=== PATIENT | male | born 1990 | race Caucasian/White ===

== ENCOUNTER 2018-05-10 17:10 | Emergency (ER) | payer OTHER ==
--- NOTE | 2018-05-10 17:29 | ER Report ---
History and Physical Time Seen By MD: 17:20 Hx. of Stated Complaint: L SHOULDER HAS BEEN HURTING SINCE JAN, FELT IT POP DURING SLEEP, PAIN RADIATING INTO JAW, HEAD AND L LEG, TINGLING L ARM HPI/ROS CHIEF COMPLAINT: Left shoulder pain HISTORY OF PRESENT ILLNESS: 27-year-old male patient presents to emergency room with complaint of left shoulder pain. Patient states he's been having problems with the shoulder since December. He states that today he was pushing himself up out of a chair when he felt a pop in his shoulder. He states since then he's been having pain to the left shoulder. He states the pain seems to radiate down the arm, up the neck as well as down the left side and into his leg. Patient states he did have significant knee pain when it ran down into his leg. He states that seemed to resolve after a few minutes. He states he called his father, who is a physician elementary assistant principal working in [employer] and he believed that it was likely a pinched nerve. He called in a prescription for a Medrol Dosepak. Patient states that he felt like the pain has worsened since then and wanted to come get that evaluated. REVIEW OF SYSTEMS: Respiratory: No cough, no dyspnea. Cardiovascular: No chest pain, no palpitations. Gastrointestinal: No vomiting, no abdominal pain. Musculoskeletal: As noted above Allergies: Coded Allergies: No Known Drug Allergies (Unverified , 05/10/18) Home Meds Active Scripts Diazepam (VALIUM) 5 Mg Tablet, 5 MG PO TID PRN for MUSCLE SPASMS, #21 TAB Prov:MARI CROWDER 05/10/18 Hydrocodone Bit/Acetaminophen (HYDROCODON-ACETAMINOPHEN 5-325) 1 Each Tablet, 1 EACH PO Q4-6H PRN for PAIN, #8 TAB Prov:MARI CROWDER 05/10/18 Past Medical/Surgical History Patient has a past medical history of seizures. Patient denies any surgical history. Reviewed Nurses Notes: Yes Constitutional Vital Sign - Last 24 Hours 05/10/18 05/10/18 05/10/18 05/10/18 17:16 17:18 17:25 17:40 Pulse 93 102 85 Resp 18 B/P (MAP) 146/111 (123) 146/111 Pulse Ox 97 93 92 O2 Delivery Room Air 05/10/18 05/10/18 05/10/1805/10/19 17:51 17:55 18:00 18:10 Pulse ??? 76 B/P (MAP) 126/95 (105) ???/??? (1665) Pulse Ox 95 05/10/18 05/10/18 05/10/18 18:25 18:30 18:40 Pulse 80 85 B/P (MAP) 126/89 (101) Pulse Ox 92 95 Physical Exam General Appearance: The patient is alert, has no immediate need for airway protection and no current signs of toxicity. Respiratory: Chest is non tender, lungs are clear to auscultation. Cardiac: regular rate and rhythm Gastrointestinal: Abdomen is soft and non tender, no masses, bowel sounds normal. Musculoskeletal: Neck: Neck is supple and non tender. Back: Patient has no tenderness to the thoracic or lumbar spine. Extremities have full range of motion and are non tender. Skin: No rashes or lesions. DIFFERENTIAL DIAGNOSIS: After history and physical exam differential diagnosis was considered for muscle spasms, before meals separation, contusion, fracture. Medical Decision Making EKG/Imaging Imaging CERVICAL SPINE MIN 4 VIEW INDICATION: Neck pain. Injury in December. COMPARISON: None available FINDINGS: 5 views of the cervical spine. The vertebral bodies are aligned. No fracture or facet dislocation. No bony lesions. No degenerative changes. The foramina are patent bilaterally. Prevertebral soft tissues are normal. Lung apices are clear. IMPRESSION: Normal exam. Report Dictated By: Aníbal Niño at 05/10/2018 6:17 PM Report E-Signed By: Aníbal Niño at 05/10/2018 6:19 PM SHOULDER MIN 2 VIEWS LEFT Indication: Left shoulder pain. Injury in December. Comparison: Unavailable Findings: 4 views of the left shoulder. No fracture or dislocation. No bony lesions. No degenerative changes. Soft tissues are unremarkable. IMPRESSION: 1. No acute osseous abnormality left shoulder. Report Dictated By: Aníbal Niño at 05/10/2018 6:19 PM Report E-Signed By: Aníbal Niño at 05/10/2018 6:21 PM ED Course/Re-evaluation ED Course Patient is a minute and examined, history and physical were obtained. Differential diagnoses were considered. On examination lungs are clear, heart is regular, abdomen is soft nontender. Patient had no tenderness to palpation of the left shoulder, neck, thoracic lumbar spine. X-rays done of the cervical spine as well as the left shoulder. Patient did have significant loss of lordosis of the cervical spine. I discussed the findings with the patient and his brother. We did review the images together. Patient had persistent pain and spasms. We will go ahead and try Valium, as a potent muscle relaxer as well as a limited supply of pain medication. He is careful with mixing these 2 medications. He is to follow-up with his primary care provider in 2 days he's still having persistent pain. Patient verbalized understanding and agreement with plan. His to go ahead and continue with the Medrol Dosepak. I did get a call from [facility] with concerns with prescriptions. It is my hope that they will not be taking the medications the exact same time, but will be spreading them out. However she stated that she will go ahead and give the patient Narcan. I would be reasonable at this time. Decision to Disposition Date: May 10, 2018 Decision to Disposition Time: 18:49 Depart Departure Latest Vital Signs Vital Signs Date Time Temp Pulse Resp B/P (MAP) Pulse Ox O2 Delivery O2 Flow Rate FiO2 05/10/18 18:40 85 95 05/10/18 18:30 126/89 (101) 05/10/18 17:18 18 Room Air Impression: Primary Impression: Muscle spasms of neck Additional Impression: Muscle spasm of back Condition: Improved Disposition: HOME OR SELF-CARE New Scripts Diazepam (VALIUM) 5 Mg Tablet 5 MG PO TID PRN for MUSCLE SPASMS, #21 TAB Prov: MARI CROWDER 05/10/18 Hydrocodone Bit/Acetaminophen (HYDROCODON-ACETAMINOPHEN 5-325) 1 Each Tablet 1 EACH PO Q4-6H PRN for PAIN, #8 TAB Prov: MAIR CROWDER 05/10/18 Patient Instructions: Muscle Spasm (ED) Additional Instructions: Limit activity by pain. You may apply heat to the sore areas. You should follow up with your primary care provider in the next 2-3 days. Take the medication as prescribed. Continue with the Medrol Dose Pack. Return to the ER if condition worsens. Problem Qualifiers MARI CROWDER May 10, 2018 17:29
[2018-05-10] MEDS ORDERED: ORPHENADRINE 60MG/2ML INJ IM ONE (17:35)
[2018-05-10] MEDS ORDERED: KETOROLAC 30 MG/ML VIAL IM ONE (17:35)
--- NOTE | 2018-05-10 18:22 | RADIOLOGY IMAGING REPORT ---
FACILITY: [facility] [place]IENT NAME: Renny Hahn : 1990 MR: [id number] V: [id number] EXAM DATE: ORDERING PHYSICIAN: MARI CROWDER TECHNOLOGIST: Location: [facility] - [place] Patient: Renny Hahn : 1990 Visit/Account:[id number] Date of Sevice: 05/10/2018 CERVICAL SPINE MIN 4 VIEW INDICATION: Neck pain. Injury in December. COMPARISON: None available FINDINGS: 5 views of the cervical spine. The vertebral bodies are aligned. No fracture or facet dis location. No bony lesions. No degenerative changes. The foramina are patent bilaterally. Prevertebral soft tissues are normal. Lung apices are clear. IMPRESSION: Normal exam. Report Dictated By: Aníbal Niño at 05/10/2018 6:17 PM Report E-Signed By: Aníbal Niño at 05/10/2018 6:19 PM WSN:[id number]
--- NOTE | 2018-05-10 18:25 | RADIOLOGY IMAGING REPORT ---
FACILITY: [facility] PATIENT NAME: Renny Hahn : 1990 MR: [id number] V: [id number] EXAM DATE: ORDERING PHYSICIAN: MARI CROWDER TECHNOLOGIST: Location: [facility] - [place] Patient: Renny Hahn : 1990 Visit/Account:[id number] Date of Sevice: 05/10/2018 SHOULDER MIN 2 VIEWS LEFT Indication: Left shoulder pain. Injury in December. Comparison: Unavailable Findings: 4 views of the left shoulder. No fracture or dislocation. No bony lesions. No degenerative changes. S oft tissues are unremarkable. IMPRESSION: 1. No acute osseous abnormality left shoulder. Report Dictated By: Aníbal Niño at 05/10/2018 6:19 PM Report E-Signed By: Aníbal Niño at 05/10/2018 6:21 PM WSN:[id number]
[2018-05-10 18:30] VITALS: BP 126/89
[2018-05-10] MEDS ORDERED: DIA5 PO (18:46)
[2018-05-10] MEDS ORDERED: HYDR-385 PO (18:46)
== END 2018-05-10 19:00 | disposition home or self-care (01) ==
LOC: ER 17:19
DX: M62.838 Other muscle spasm (principal); M62.830 Muscle spasm of back
CPT/HCPCS: 72050; 73030; 96372; 99284; J1885; J2360

== ENCOUNTER → 2018-05-13 | Outpatient (CLI) | payer OTHER ==
[~2018-05-13] MED LIST: DIA5 PO; GADOBENATE 529MG/1ML 15ML VIAL IVP ONE; HYDR-385 PO
--- NOTE | 2018-05-13 14:10 | RADIOLOGY IMAGING REPORT ---
FACILITY: [facility] - [place] PATIENT NAME: Renny Hahn : 1990 MR: [id number] V: [id number] EXAM DATE: ORDERING PHYSICIAN: CHEKO ROMAN TECHNOLOGIST: Location: [facility] Patient: Renny Hahn : 1990 Visit/Account:[id number] Date of Sevice: 05/13/2018 Exam type: XR ORBITS History: Pre-MRI screening Comparison: None. Findings: No radiopaque metallic foreign bodies project over the orbits IMPRESSION: 1. No radiopaque metallic foreign bodies project over the orbits Report Dictated By: Jasmin Skinner MD at 05/13/2018 2:03 PM Report E-Signed By: Jasmin Skinner MD at 05/13/2018 2:04 PM WSN:[id number]
--- NOTE | 2018-05-13 15:25 | RADIOLOGY IMAGING REPORT ---
FACILITY: [facility] - [place] PATIENT NAME: Renny Hahn : 1990 MR: [id number] V: [id number] EXAM DATE: ORDERING PHYSICIAN: CHEKO ROMAN TECHNOLOGIST: Location: [facility] - [place] Patient: Renny Hahn : 1990 Visit/Account:[id number] Date of Sevice: 05/13/2018 Examination: MR brain without and with contrast History: Spells of decreased attention to the mass, nocturnal seizures Comparison: None Technique: Multiplane MR imaging was performed through the brain without and with contrast. 15 cc IV multihance was administered. Findings: Diffusion: None Ventricles: Normal Midline shift: None Extraxial fluid: None Midline craniocervical structures: Normal Parenchyma: No heterotopic kent matter or apparent cortical abnormality. Normal parenchyma. Enhancement: No pathologic enhancement Vascular flow voids: Normal Orbits and paranasal sinuses: A few small bilateral maxillary sinus mucous retention cysts.. Other: No significant additional finding. Impression: Normal brain MR without and with contrast. Report Dictated By: Roberto Osullivan MD at 05/13/2018 3:13 PM Report E-Signed By: Roberto Osullivan MD at 05/13/2018 3:20 PM WSN:[id number]
== END ==
LOC: MRI 03:10
PROVIDERS: ATTEND Physician Assistant
DX: J34.1 Cyst and mucocele of nose and nasal sinus (principal)
CPT/HCPCS: 70030; 70553; A9577

== ENCOUNTER → 2018-05-16 | Outpatient (CLI) | payer OTHER ==
[~2018-05-16] MED LIST changes: -GADOBENATE 529MG/1ML 15ML VIAL IVP ONE
== END ==
LOC: RESP 07:16
PROVIDERS: ATTEND Physician Assistant
DX: R68.89 Other general symptoms and signs (principal)
CPT/HCPCS: 95819

== ENCOUNTER 2018-06-15 02:40 | Emergency (ER) | payer OTHER ==
--- NOTE | 2018-06-15 02:43 | ER Report ---
History and Physical Time Seen By MD: 02:43 HPI/ROS CHIEF COMPLAINT: Seizure.? HISTORY OF PRESENT ILLNESS: 27-year-old male being followed by a neurologist for seizures while he sleeps. Apparently he flings himself from the bed usually out the right side. He's had extensive workup including an MRI. He's had an EEG. He is on no medication. His neurologist requested that he go into emergency department after his next episode to have a prolactin level drawn. Patient has abrasions around his right eye where he fell out of bed and injured it. He denies head or neck pain. He denies nausea or vomiting. REVIEW OF SYSTEMS: Respiratory: No cough, no dyspnea. Cardiovascular: No chest pain, no palpitations. Gastrointestinal: No vomiting, no abdominal pain. Musculoskeletal: No back pain. Allergies: Coded Allergies: No Known Drug Allergies (Unverified , 06/15/18) Home Meds Discontinued Scripts Diazepam (VALIUM) 5 Mg Tablet, 5 MG PO TID PRN for MUSCLE SPASMS, #21 TAB Prov:MARI CROWDER 05/10/18 Hydrocodone Bit/Acetaminophen (HYDROCODON-ACETAMINOPHEN 5-325) 1 Each Tablet, 1 EACH PO Q4-6H PRN for PAIN, #8 TAB Prov:MARI CROWDER 05/10/18 Reviewed Nurses Notes: Yes Old Medical Records Reviewed: Yes Constitutional Vital Sign - Last 24 Hours 06/15/18 06/15/18 06/15/18 06/15/18 02:48 02:49 03:00 03:10 Temp 98.1 Pulse 124 104 Resp 16 15 B/P (MAP) 123/89 123/89 (100) 116/89 (98) Pulse Ox 92 90 O2 Delivery Room Air 06/15/18 03:15 B/P (MAP) 110/79 (89) Physical Exam Vital signs stable, afebrile, pulse ox normal General Appearance: The patient is alert, has no immediate need for airway protection and no current signs of toxicity. Palpation of the head and neck reveal no serious trauma. There are some superficial abrasions and contusion around the right orbit. Facial bones are intact on palpation HEENT: Pupils equal and round no injection. EOMI, TMs normal, oropharynx without dental trauma. There is a bite flako to the right lower lip near the right corner of the mouth. Respiratory: Chest is non tender, lungs are clear to auscultation. Cardiac: regular rate and rhythm Gastrointestinal: Abdomen is soft and non tender, no masses, bowel sounds normal. Musculoskeletal: Neck: Neck is supple and non tender. Extremities have full range of motion and are non tender. Skin: No rashes or lesions. Neuro: Alert and oriented 3, cranial nerves II through XII intact motor 5/5 all groups, sensory intact to light touch 4 DIFFERENTIAL DIAGNOSIS: After history and physical exam differential diagnosis was considered for a seizure including but not limited to electrolyte abnormality, alcohol withdrawal, medication noncompliance, head injury, and breakthrough seizure. Medical Decision Making Data Points Result Diagram: 06/15/18 0252 06/15/18 0252 Laboratory Hematology Test 06/15/18 02:52 Red Blood Count 5.34 M/uL (4.00-5.60) Mean Corpuscular Volume 96.9 fL (80.0-96.0) Mean Corpuscular Hemoglobin 32.6 pg (26.0-33.0) Mean Corpuscular Hemoglobin Concent 33.6 g/dL (32.0-36.0) Red Cell Distribution Width 12.7 % (11.5-14.5) Mean Platelet Volume 7.8 fL (7.2-11.1) Neutrophils (%) (Auto) 67.5 % (39.4-72.5) Lymphocytes (%) (Auto) 24.4 % (17.6-49.6) Monocytes (%) (Auto) 6.3 % (4.1-12.4) Eosinophils (%) (Auto) 1.4 % (0.4-6.7) Basophils (%) (Auto) 0.4 % (0.3-1.4) Nucleated RBC Relative Count (auto) 0.1 /100WBC Neutrophils # (Auto) 5.7 K/uL (2.0-7.4) Lymphocytes # (Auto) 2.1 K/uL (1.3-3.6) Monocytes # (Auto) 0.5 K/uL (0.3-1.0) Eosinophils # (Auto) 0.1 K/uL (0.0-0.5) Basophils # (Auto) 0.0 K/uL (0.0-0.1) Nucleated RBC Absolute Count (auto) 0.01 K/uL Sodium Level 140 mmol/L (137-145) Potassium Level 3.8 mmol/L (3.5-5.0) Chloride Level 101 mmol/L (98-107) Carbon Dioxide Level 29 mmol/L (22-30) Blood Urea Nitrogen 16 mg/dl (9-21) Creatinine 1.00 mg/dl (0.66-1.25) Glomerular Filtration Rate Calc > 60.0 Random Glucose 106 mg/dl (75-110) Calcium Level 9.3 mg/dl (8.4-10.2) Magnesium Level 2.1 mg/dl (1.7-2.2) Total Bilirubin 0.4 mg/dl (0.2-1.3) Aspartate Amino Transf (AST/SGOT) 31 U/L (0-35) Alanine Aminotransferase (ALT/SGPT) 35 U/L (0-56) Alkaline Phosphatase 72 U/L (0-126) Total Protein 8.2 g/dl (6.3-8.2) Albumin 5.0 g/dl (3.5-5.0) Chemistry Test 06/15/18 02:52 White Blood Count 8.4 k/uL (4.5-11.0) Red Blood Count 5.34 M/uL (4.00-5.60) Hemoglobin 17.4 g/dL (14.0-18.0) Hematocrit 51.7 % (42.0-52.0) Mean Corpuscular Volume 96.9 fL (80.0-96.0) Mean Corpuscular Hemoglobin 32.6 pg (26.0-33.0) Mean Corpuscular Hemoglobin Concent 33.6 g/dL (32.0-36.0) Red Cell Distribution Width 12.7 % (11.5-14.5) Platelet Count 265 K/uL (150-450) Mean Platelet Volume 7.8 fL (7.2-11.1) Neutrophils (%) (Auto) 67.5 % (39.4-72.5) Lymphocytes (%) (Auto) 24.4 % (17.6-49.6) Monocytes (%) (Auto) 6.3 % (4.1-12.4) Eosinophils (%) (Auto) 1.4 % (0.4-6.7) Basophils (%) (Auto) 0.4 % (0.3-1.4) Nucleated RBC Relative Count (auto) 0.1 /100WBC Neutrophils # (Auto) 5.7 K/uL (2.0-7.4) Lymphocytes # (Auto) 2.1 K/uL (1.3-3.6) Monocytes # (Auto) 0.5 K/uL (0.3-1.0) Eosinophils # (Auto) 0.1 K/uL (0.0-0.5) Basophils # (Auto) 0.0 K/uL (0.0-0.1) Nucleated RBC Absolute Count (auto) 0.01 K/uL Glomerular Filtration Rate Calc > 60.0 Calcium Level 9.3 mg/dl (8.4-10.2) Magnesium Level 2.1 mg/dl (1.7-2.2) Total Bilirubin 0.4 mg/dl (0.2-1.3) Aspartate Amino Transf (AST/SGOT) 31 U/L (0-35) Alanine Aminotransferase (ALT/SGPT) 35 U/L (0-56) Alkaline Phosphatase 72 U/L (0-126) Total Protein 8.2 g/dl (6.3-8.2) Albumin 5.0 g/dl (3.5-5.0) ED Course/Re-evaluation ED Course Patient was admitted to an examination room. H&P was done. The differential diagnosis was considered. Patient with potential seizure. Patient is being followed by neurology. He started had an extensive workup. His neurologist is requesting a prolactin level be drawn shortly after his next episode. He presents to the emergency department to have this done. He is alert and oriented 3. He voices no complaints. Basic diagnostic laboratory studies were ordered as well as a prolactin level. Patient was discharged home. Decision to Disposition Date: Jun 15, 2018 Decision to Disposition Time: 03:20 Depart Departure Latest Vital Signs Vital Signs Date Time Temp Pulse Resp B/P (MAP) Pulse Ox O2 Delivery O2 Flow Rate FiO2 06/15/18 03:15 110/79 (89) 06/15/18 03:10 104 15 90 06/15/18 02:48 98.1 Room Air Impression: Primary Impression: Seizure-like activity Additional Impression: Facial abrasion Condition: Improved Disposition: HOME OR SELF-CARE Patient Instructions: New-Onset Seizure in Adults (ED) Additional Instructions: Follow-up with your neurologist as planned Problem Qualifiers Additional Impression: Facial abrasion Encounter type: initial encounter Qualified Codes: S00.81XA - Abrasion of other part of head, initial encounter CELESTE CHILDERS DO Jun 15, 2018 02:43
[2018-06-15 03:12] LABS: PLATELET COUNT, AUTOMATED 265 K/uL (150-450)
[2018-06-15 03:15] VITALS: BP 110/79
== END 2018-06-15 03:41 | disposition home or self-care (01) ==
LOC: ER 02:59
DX: R56.9 Unspecified convulsions (principal); S00.211A Abrasion of right eyelid and periocular area, initial encounter; W06.XXXA Fall from bed, initial encounter
CPT/HCPCS: 82040; 82247; 82310; 82374; 82435; 82565; 82947; 83735; 84075; 84132; 84146; 84155; 84295; 84450; 84460; 84520; 85025; 99282

== ENCOUNTER 2018-07-30 22:29 | Emergency (ER) | payer OTHER ==
[2018-07-30] MEDS ORDERED: DIVSR125 PO (22:48)
--- NOTE | 2018-07-30 23:07 | ER Report ---
History and Physical Time Seen By MD: 23:02 Hx. of Stated Complaint: PATIENT REPORTS INJURING LEFT SHOULDER DURING SEIZURE HPI/ROS CHIEF COMPLAINT: Muscle spasming in the left shoulder area HISTORY OF PRESENT ILLNESS: This is a 19-year-old male. He has a history of seizures. He is currently on Depakote, switch from [employer] which was not working. Mainly has seizures at night time. This often will cause some severe muscle spasm in the neck or shoulder areas. Tonight having this spasming suddenly come on mainly in the left trapezius area and a little bit into the anterior shoulder. No neck pain tonight. No headache. Denies any chest pain or problems breathing with this. Has been having normal oral intake. Allergies: Coded Allergies: No Known Drug Allergies (Unverified , 07/30/18) Home Meds Active Scripts Diazepam (VALIUM) 5 Mg Tablet, 5 MG PO Q8H PRN for MUSCLE SPASMS, #15 TAB 0 Refills Prov:MERNA BAKER MD 07/31/18 Reported Medications Divalproex Sodium (DEPAKOTE) 125 Mg Tab, 125 MG PO BID, TAB 07/30/18 Reviewed Nurses Notes: Yes Constitutional Vital Sign - Last 24 Hours 07/30/18 07/30/18 07/30/18 07/30/18 22:29 22:40 22:44 22:59 Temp 97.7 Pulse ??? 64 69 Resp 14 B/P (MAP) 122/88 (99) 122/88 Pulse Ox 98 95 O2 Delivery Room Air 07/30/18 07/30/18 07/30/18 07/31/18 23:00 23:29 23:30 00:00 Pulse 62 B/P (MAP) 121/79 (93) 114/81 (92) 112/70 (84) Pulse Ox 95 07/31/18 07/31/18 07/31/18 07/31/18 00:05 00:30 00:35 00:40 Pulse 71 56 B/P (MAP) 113/82 (92) Pulse Ox 93 94 94 07/31/18 07/31/18 07/31/18 01:00 01:10 01:30 Pulse 53 B/P (MAP) 106/73 (84) 108/74 (85) Pulse Ox 93 Physical Exam General Appearance: The patient is alert. No acute distress. Eyes: Pupils are equal, round. No pallor, injection or icterus. ENT: Mucous membranes are moist. Normal oral mucosa. Posterior oropharynx is normal. Neck: Supple and non tender. No lymphadenopathy. Respiratory: Lungs are clear to auscultation. Cardiovascular: Regular rate and rhythm. No murmurs, gallops or rubs. Neurological: Alert and oriented x3. No focal neurologic deficits Skin: Warm and dry. No rashes. Musculoskeletal: Pain in the trapezius area and then into the pectoralis area as well. No pain in the rhomboids and levator scapula. No pain over the clavicle, humerus and deltoid area, or scapula. DIFFERENTIAL DIAGNOSIS: After history and physical exam, differential diagnosis was considered for patient with muscle spasms related to seizure. Good results with Valium last time so we'll try some of this. Also will check a pro-casted level as well as electrolytes Medical Decision Making Data Points Result Diagram: 07/30/18 8678 Laboratory Hematology Test 07/30/18 23:35 Sodium Level 140 mmol/L (137-145) Potassium Level 4.0 mmol/L (3.5-5.0) Chloride Level 105 mmol/L (98-107) Carbon Dioxide Level 27 mmol/L (22-30) Blood Urea Nitrogen 16 mg/dl (9-21) Creatinine 0.90 mg/dl (0.66-1.25) Glomerular Filtration Rate Calc > 60.0 Random Glucose 93 mg/dl (75-110) Calcium Level 8.9 mg/dl (8.4-10.2) Magnesium Level 2.0 mg/dl (1.7-2.2) Total Bilirubin 0.4 mg/dl (0.2-1.3) Aspartate Amino Transf (AST/SGOT) 38 U/L (0-35) Alanine Aminotransferase (ALT/SGPT) 30 U/L (0-56) Alkaline Phosphatase 76 U/L (0-126) Total Protein 6.4 g/dl (6.3-8.2) Albumin 3.8 g/dl (3.5-5.0) Valproic Acid (Depakene) Level 48.3 ug/ml Chemistry Test 07/30/18 23:35 Glomerular Filtration Rate Calc > 60.0 Calcium Level 8.9 mg/dl (8.4-10.2) Magnesium Level 2.0 mg/dl (1.7-2.2) Total Bilirubin 0.4 mg/dl (0.2-1.3) Aspartate Amino Transf (AST/SGOT) 38 U/L (0-35) Alanine Aminotransferase (ALT/SGPT) 30 U/L (0-56) Alkaline Phosphatase 76 U/L (0-126) Total Protein 6.4 g/dl (6.3-8.2) Albumin 3.8 g/dl (3.5-5.0) Valproic Acid (Depakene) Level 48.3 ug/ml Toxicology Test 07/30/18 23:35 Valproic Acid (Depakene) Level 48.3 ug/ml ED Course/Re-evaluation ED Course Normal electrolytes. Improved with 5 mg oral Valium dose. Normal valproic acid level Decision to Disposition Date: July 31, 2018 Decision to Disposition Time: 01:28 Depart Departure Latest Vital Signs Vital Signs Date Time Temp Pulse Resp B/P (MAP) Pulse Ox O2 Delivery O2 Flow Rate FiO2 07/31/18 01:30 108/74 (85) 07/31/18 01:10 53 93 07/30/18 22:44 97.7 14 Room Air Impression: Primary Impression: Muscle spasms of neck Additional Impression: Muscle spasm of back Condition: Improved Disposition: HOME OR SELF-CARE New Scripts Diazepam (VALIUM) 5 Mg Tablet 5 MG PO Q8H PRN for MUSCLE SPASMS, #15 TAB 0 Refills Prov: MERNA BAKER MD 07/31/18 Patient Instructions: Muscle Spasm (ED) Additional Instructions: Take Valium 5mg, 1/2 to 1 tablet every 8 hours as needed for severe muscle sp asms. Be careful as this medicine will make you drowsy. Problem Qualifiers MERNA BAKER MD July 30, 2018 23:07
[2018-07-30] MEDS ORDERED: DIAZEPAM 5 MG TAB PO ONE (23:10)
[2018-07-31] MEDS ORDERED: DIA5 PO (01:29)
[2018-07-31 01:30] VITALS: BP 108/74
== END 2018-07-31 01:37 | disposition home or self-care (01) ==
LOC: ER 23:03
DX: M62.830 Muscle spasm of back (principal); M62.838 Other muscle spasm
CPT/HCPCS: 36415; 80164; 82040; 82247; 82310; 82374; 82435; 82565; 82947; 83735; 84075; 84132; 84155; 84295; 84450; 84460; 84520; 99283